=== PATIENT | female | born 1955 | race African-American/Black ===

== ENCOUNTER → 2022-01-12 | Day surgery (SDC) | payer OTHER, MEDICAID ==
[2022-01-10 13:54] LABS: Basophils # (auto) 0.1 10 ^3/uL (0-0.2); Basophils % (auto) 0.7 % (0.0-2.0); Eosinophils # (auto) 0.1 10 ^3/uL (0-0.8); Eosinophils % (auto) 1.5 % (0.0-7.0); Hematocrit 40.8 % (36.0-46.0); Hemoglobin 13.5 g/dL (12.2-16.2); Lymphocytes % (auto) 23.2 % (10.0-50.0); Mean Corpuscular Hemoglobin 32.7 pg (28.0-32.0); Mean Corpuscular Hgb Conc. 33.2 g/dL (32.0-36.0); Mean Corpuscular Volume 98.6 fL (80.0-100.0); Monocytes # (auto) 0.4 10 ^3/uL (0-1.3); Monocytes % (auto) 4.6 % (0.0-12.0); Neutrophils # (auto) 6.1 10 ^3/uL (1.6-8.6); Nucleated Red Blood Cells % 0.1 %; Red Blood Cells 4.14 10^6/uL (4.0-5.20); White Blood Cell 8.8 10^3/uL (4.4-10.8)
[2022-01-10 14:09] LABS: INR 0.98 (0.9-1.15); Partial Thromboplastin Time 25.7 sec (24.6-33.4)
[2022-01-10 14:19] LABS: Albumin 3.3 g/dL (3.4-5.0); BUN/Creatinine Ratio 10.8; Calcium 9.9 mg/dL (8.5-10.1); Potassium 4.7 mmol/L (3.5-5.1)
[2022-01-10 14:21] LABS: Bilirubin, Total 1.2 mg/dL (0.2-1.0); Total Protein 7.2 g/dL (6.4-8.2)
[2022-01-11 10:06] LABS: Urine Bacteria FEW /hpf (None Seen); Urine Blood 1+ /uL (Negative); Urine Mucus FEW (None Seen); Urine Specific Gravity 1.017 (1.001-1.035); Urine WBC 14 /hpf (0 - 5)
[~2022-01-12] VITALS: Ht 165.1 cm; Wt 65.3 kg
[~2022-01-12] MED LIST: ASPI81CH59 PO; ATE50T PO; ATOR-47 OR; BENA40TA8; BUPIVACAINE 0.5% P/F INJ 10 ML VIAL ONE; BUPR200T2 PO; CLON0.2T OR; DexAMETHasone SOD PHOS 10MG/1ML VIAL INJ ONE; ESMOLOL HCL 10 ML IV ONE; FLUO20CA19 OR; GLYCOPYRROLATE 0.2 MG/ML 1ML VIAL ONE; HYDR1TAB97 PO; KETAMINE 50mg/ML 10ml Vial (500mg/10ml) IV ONE; KETOROLAC TROMETH 30 MG/ML 1ML VIAL ONE; LIDOCAINE 1%HCL (LOCAL ANESTH) 10 ML MDV ONE; LIDOCAINE 2% (LOCAL ANESTH.) PF 5ml SDV ONE; NIFE90TA49 OR; OMEP-337 OR; ONDANSETRON HCL 4 MG/2 ML VIAL ONE; PHENYLEPHRINE HCL 10 MG/ML VL ONE; PROPOFOL 10 MG/ML 20 ML IV ONE; SODIUM CHLORIDE LOCK 10 ML ONE; ceFAZolin 1GM/50ML 50 ML IV ONE; ePHEDrine SULFATE 50 MG/ML AMP ONE; fentaNYL CITRATE 100 MCG/2 ML VL ONE
[2022-01-12 14:45] VITALS: BP 132/74
== END | disposition home or self-care (01) ==
LOC: SUR 08:45
PROVIDERS: ATTEND Podiatrist
DX: M20.11 Hallux valgus (acquired), right foot (principal); M20.41 Other hammer toe(s) (acquired), right foot; I10 Essential (primary) hypertension; Z85.3 Personal history of malignant neoplasm of breast; K21.9 Gastro-esophageal reflux disease without esophagitis; Z79.899 Other long term (current) drug therapy; Z98.890 Other specified postprocedural states; Z20.822 Contact with and (suspected) exposure to COVID-19
CPT/HCPCS: 28308; 28750; 36415; 73620; 76000; 80053; 81001; 85025; 85610; 85730; C1713; J0690; J1100; J1885; J2001; J2370; J2405; J2704; J3010; J3490; U0003

== ENCOUNTER 2022-02-25 10:20 | Inpatient (IN) | payer OTHER, MEDICAID ==
[~2022-02-25] VITALS: Ht 157.5 cm; Wt 65.2 kg
[~2022-02-25 10:20] MED LIST changes: -BUPIVACAINE 0.5% P/F INJ 10 ML VIAL ONE; -DexAMETHasone SOD PHOS 10MG/1ML VIAL INJ ONE; -ESMOLOL HCL 10 ML IV ONE; -GLYCOPYRROLATE 0.2 MG/ML 1ML VIAL ONE; -KETAMINE 50mg/ML 10ml Vial (500mg/10ml) IV ONE; -KETOROLAC TROMETH 30 MG/ML 1ML VIAL ONE; -LIDOCAINE 1%HCL (LOCAL ANESTH) 10 ML MDV ONE; -LIDOCAINE 2% (LOCAL ANESTH.) PF 5ml SDV ONE; -ONDANSETRON HCL 4 MG/2 ML VIAL ONE; -PHENYLEPHRINE HCL 10 MG/ML VL ONE; -PROPOFOL 10 MG/ML 20 ML IV ONE; -SODIUM CHLORIDE LOCK 10 ML ONE; -ceFAZolin 1GM/50ML 50 ML IV ONE; -ePHEDrine SULFATE 50 MG/ML AMP ONE; -fentaNYL CITRATE 100 MCG/2 ML VL ONE
[2022-02-25] MEDS ORDERED: cloNIDine HCL 0.1 MG TAB PO ONE (11:15)
[2022-02-25 12:55] LABS: Basophils # (auto) 0 10 ^3/uL (0-0.2); Basophils % (auto) 0.3 % (0.0-2.0); Eosinophils # (auto) 0 10 ^3/uL (0-0.8); Eosinophils % (auto) 0.1 % (0.0-7.0); Hematocrit 45.1 % (36.0-46.0); Hemoglobin 14.6 g/dL (12.2-16.2); Lymphocytes # (auto) 1.2 10 ^3/uL (0.4-5.4); Lymphocytes % (auto) 10.3 % (10.0-50.0); Mean Corpuscular Hemoglobin 31.7 pg (28.0-32.0); Mean Corpuscular Hgb Conc. 32.4 g/dL (32.0-36.0); Mean Corpuscular Volume 97.9 fL (80.0-100.0); Monocytes # (auto) 0.4 10 ^3/uL (0-1.3); Monocytes % (auto) 3.7 % (0.0-12.0); Neutrophils # (auto) 10.2 10 ^3/uL (1.6-8.6); Neutrophils % (auto) 85.6 % (37.0-80.0); Nucleated Red Blood Cells % 0.1 %; Red Cell Distribution Width 14.5 % (11.8-14.3); White Blood Cell 11.9 10^3/uL (4.4-10.8)
[2022-02-25 13:09] LABS: Albumin 4.2 g/dL (3.4-5.0); Calcium 11.1 mg/dL (8.5-10.1); Potassium 5.1 mmol/L (3.5-5.1)
[2022-02-25 13:13] LABS: BUN/Creatinine Ratio 11.3; Bilirubin, Total 1.2 mg/dL (0.2-1.0); Total Protein 8.1 g/dL (6.4-8.2)
[2022-02-25] MEDS ORDERED: ENOXAPARIN SOD 80 MG/0.8ML SYRINGE SC ONE (13:45)
[2022-02-25] MEDS ORDERED: ONDANSETRON HCL 4 MG/2 ML VIAL IV PRN (15:30)
[2022-02-25] MEDS ORDERED: NITROGLYCERIN 0.4 MG SL TAB SL PRN (15:30)
[2022-02-25] MEDS ORDERED: MORPHINE SULFATE INJ 2 MG/ml SYRG IV PRN (15:30)
[2022-02-25] MEDS ORDERED: ACETAMINOPHEN 325 MG TAB PO PRN (15:30)
[2022-02-25] MEDS ORDERED: DOCUSATE SOD 100 MG CAP PO PRN (15:30)
[2022-02-25] MEDS ORDERED: MET25T PO (15:34)
[2022-02-25] MEDS ORDERED: GABA300C10 PO (15:34)
[2022-02-25] MEDS ORDERED: LABETALOL HCL 5 MG/ML 4ML SYRINGE IV ONE (15:45)
[2022-02-25] MEDS ORDERED: METOPROLOL TARTRATE 25 MG TAB PO ONE (18:30)
[2022-02-25] MEDS ORDERED: SODIUM CHLORIDE 0.9% 500 ML IV ONE (18:30)
[2022-02-25] MEDS: hydrALAZINE HCL 20 MG/ML VL IV PRN (20:15)
[2022-02-25 20:39] LABS: Urine Bacteria FEW /hpf (None Seen); Urine Blood Negative /uL (Negative); Urine Specific Gravity 1.019 (1.001-1.035); Urine WBC 27 /hpf (0 - 5)
[2022-02-25] MEDS ORDERED: cefTRIAXone 1GM/50ML D5W 50 ML IV ONE (21:45)
[2022-02-25] MEDS ORDERED: cloNIDine HCL 0.1 MG TAB PO SCH (22:00)
[2022-02-25] MEDS: HYDROcodone-ACET 5/325MG TAB PO PRN (22:13)
[2022-02-25] MEDS ORDERED: TEMAZEPAM 15 MG CAP PO ONE (23:45)
[2022-02-26] MEDS: hydrALAZINE HCL 20 MG/ML VL IV PRN (01:46)
[2022-02-26] MEDS: cloNIDine HCL 0.1 MG TAB PO SCH ×4 (05:41→22:06)
[2022-02-26] MEDS: LABETALOL HCL 200 MG TAB PO SCH ×4 (05:41→22:06)
[2022-02-26] MEDS: ATORVASTATIN 20 MG TAB PO SCH (07:15)
[2022-02-26 07:43] LABS: Basophils # (auto) 0.1 10 ^3/uL (0-0.2); Basophils % (auto) 0.7 % (0.0-2.0); Eosinophils # (auto) 0 10 ^3/uL (0-0.8); Hematocrit 39.3 % (36.0-46.0); Hemoglobin 13.5 g/dL (12.2-16.2); Lymphocytes # (auto) 1.5 10 ^3/uL (0.4-5.4); Lymphocytes % (auto) 15.6 % (10.0-50.0); Mean Corpuscular Hemoglobin 33.3 pg (28.0-32.0); Mean Corpuscular Hgb Conc. 34.5 g/dL (32.0-36.0); Mean Corpuscular Volume 96.8 fL (80.0-100.0); Monocytes # (auto) 0.4 10 ^3/uL (0-1.3); Monocytes % (auto) 4.3 % (0.0-12.0); Neutrophils # (auto) 7.8 10 ^3/uL (1.6-8.6); Neutrophils % (auto) 79.4 % (37.0-80.0); Nucleated Red Blood Cells % 0.1 %; Red Blood Cells 4.06 10^6/uL (4.0-5.20); Red Cell Distribution Width 14.3 % (11.8-14.3); White Blood Cell 9.8 10^3/uL (4.4-10.8)
[2022-02-26 08:00] LABS: Albumin 3.4 g/dL (3.4-5.0); Calcium 10.2 mg/dL (8.5-10.1); Potassium 3.8 mmol/L (3.5-5.1)
[2022-02-26 08:05] LABS: BUN/Creatinine Ratio 13.9; Bilirubin, Total 1.1 mg/dL (0.2-1.0); Total Protein 7.2 g/dL (6.4-8.2)
[2022-02-26] MEDS: cefTRIAXone 1GM/50ML D5W 50 ML IV SCH (09:35)
[2022-02-26] MEDS: METOPROLOL TARTRATE 25 MG TAB PO SCH ×2 (10:00→11:04)
[2022-02-26] MEDS: PANTOPRAZOLE 40 MG/10 ML VIAL INJ IV SCH (11:02)
[2022-02-26] MEDS: ASPirin 81 mg TAB PO SCH (11:03)
[2022-02-26] MEDS: GABAPENTIN 300 MG CAP PO SCH (11:07)
[2022-02-26] MEDS ORDERED: PANT40T PO (20:01)
[2022-02-26] MEDS: HYDROcodone-ACET 5/325MG TAB PO PRN (22:10)
[2022-02-26 23:42] VITALS: BP 190/87
[2022-02-27 05:22] VITALS: BP 133/77
[2022-02-27] MEDS: cloNIDine HCL 0.1 MG TAB PO SCH ×3 (06:34→22:38)
[2022-02-27] MEDS: ATORVASTATIN 20 MG TAB PO SCH (06:34)
[2022-02-27] MEDS: HYDROcodone-ACET 5/325MG TAB PO PRN ×2 (06:34→22:39)
[2022-02-27] MEDS: LABETALOL HCL 200 MG TAB PO SCH ×3 (06:34→22:38)
[2022-02-27 08:49] VITALS: BP 117/72
[2022-02-27] MEDS: cefTRIAXone 1GM/50ML D5W 50 ML IV SCH (09:03)
[2022-02-27] MEDS: PANTOPRAZOLE 40 MG/10 ML VIAL INJ IV SCH (09:05)
[2022-02-27] MEDS: ASPirin 81 mg TAB PO SCH (09:05)
[2022-02-27] MEDS: GABAPENTIN 300 MG CAP PO SCH (09:05)
[2022-02-27 13:00] VITALS: BP 123/73
[2022-02-27 17:00] VITALS: BP 154/88
[2022-02-27 22:07] VITALS: BP 131/69
[2022-02-28 05:05] VITALS: BP 109/60
[2022-02-28] MEDS: ATORVASTATIN 20 MG TAB PO SCH (06:12)
[2022-02-28] MEDS: HYDROcodone-ACET 5/325MG TAB PO PRN ×2 (06:12→11:47)
[2022-02-28] MEDS: cloNIDine HCL 0.1 MG TAB PO SCH (06:13)
[2022-02-28] MEDS: LABETALOL HCL 200 MG TAB PO SCH (06:14)
[2022-02-28 08:00] VITALS: BP 124/70
[2022-02-28 08:50] VITALS: BP 124/70
[2022-02-28] MEDS: cefTRIAXone 1GM/50ML D5W 50 ML IV SCH (08:50)
[2022-02-28] MEDS: PANTOPRAZOLE 40 MG/10 ML VIAL INJ IV SCH (08:55)
[2022-02-28] MEDS: ASPirin 81 mg TAB PO SCH (09:00)
[2022-02-28] MEDS: GABAPENTIN 300 MG CAP PO SCH (09:00)
[2022-02-28] MEDS ORDERED: CIPR-173 PO (09:58)
[2022-02-28 11:44] VITALS: BP 124/70
[2022-02-28 13:00] VITALS: BP 148/71
== END 2022-02-28 13:30 | disposition home or self-care (01) | DRG 305 ==
LOC: EDBD 10:20 → ER 10:20 → TELE 15:34 → TELE-WESTW 02-26 18:21
PROVIDERS: ADMIT Nurse Practitioner Family; ATTEND Family Medicine
DX: I16.0 Hypertensive urgency (principal); N39.0 Urinary tract infection, site not specified; I10 Essential (primary) hypertension; E86.0 Dehydration; E78.5 Hyperlipidemia, unspecified; Z20.822 Contact with and (suspected) exposure to COVID-19; R73.9 Hyperglycemia, unspecified; Z90.49 Acquired absence of other specified parts of digestive tract; Z90.13 Acquired absence of bilateral breasts and nipples; Z85.3 Personal history of malignant neoplasm of breast
CPT/HCPCS: 36415; 71045; 74176; 80053; 81001; 82962; 83036; 84484; 85025; 87086; 87426; 93005; 93306; 96361; 96365; 96372; 96375; C9113; G0378; J0696; J2405; J3490